=== PATIENT | male | born 1960 | race Caucasian/White ===

== ENCOUNTER 2016-10-16 01:36 | Emergency (ER) | payer BC, OTHER ==
[~2016-10-16] VITALS: Ht 175.3 cm; Wt 83.9 kg
[2016-10-16] MEDS ORDERED: fentaNYL PF VIAL 100 MCG/2 ML VIAL IV PRN (03:00)
[2016-10-16] MEDS ORDERED: HYDROmorphone 2 MG/ML VIAL IV/SQ PRN (03:00)
--- NOTE | 2016-10-16 03:00 | PHYS DOC ---
Past Medical History Past Medical History: Kidney Stone Past Surgical History: No Surgical History Additional Past Surgical Histo: CYsto with ureteral stent placement Alcohol Use: None Drug Use: None Adult General Chief Complaint Chief Complaint: FLANK PAIN HPI HPI Patient is a 56 year old male who presents with complaint of right flank pain. Started at 2300 PM with pain in the right flank. No recent travel. Nausea but no vomiting. He is followed by DR Ponce. No hematuria. No diarrhea or stool changes. No fever. No chest pain or SOA. Review of Systems Review of Systems Constitutional: Denies fever or chills Eyes: Denies change in visual acuity, redness, or eye pain HENT: Denies nasal congestion or sore throat Respiratory: Denies cough or shortness of breath Cardiovascular: No chest pain. GI: Denies abdominal pain, nausea, vomiting, bloody stools or diarrhea : Denies dysuria or hematuria Musculoskeletal: Denies back pain or joint pain Integument: Denies rash or skin lesions Neurologic: Denies headache, focal weakness or sensory changes Current Medications Current Medications Current Medications Medications (Trade) Dose Ordered Sig/Deanna Start Time Stop Time Status Last Admin Dose Admin Fentanyl Citrate (Fentanyl 2ml Vial) 50 mcg PRN Q15MIN PRN 10/16/16 03:00 10/16/16 05:31 DC Hydromorphone HCl (Dilaudid) 1 mg PRN Q15MIN PRN 10/16/16 03:00 10/16/16 05:31 DC 10/16/16 04:18 1 MG Ketorolac Tromethamine (Toradol) 30 mg 1X ONCE 10/16/16 05:15 10/16/16 05:16 DC 10/16/16 05:15 30 MG Ondansetron HCl (Zofran) 4 mg 1X ONCE 10/16/16 03:30 10/16/16 03:31 DC 10/16/16 04:17 4 MG Sodium Chloride 1,000 ml @ 1,000 mls/hr Q1H 10/16/16 03:30 10/16/16 04:29 DC 10/16/16 04:18 1,000 MLS/HR Tamsulosin HCl (Flomax) 0.4 mg 1X ONCE 10/16/16 05:15 10/16/16 05:16 DC 10/16/16 05:15 0.4 MG Allergies Allergies Allergies Coded Allergies Type Severity Reaction Last Updated Verified No Known Drug Allergies 10/16/16 No Physical Exam Physical Exam Constitutional: Well developed, well nourished, no acute distress, non-toxic appearance. HENT: Normocephalic, atraumatic, bilateral external ears normal, oropharynx moist, no oral exudates, nose normal. Eyes: PERRLA, EOMI, conjunctiva normal, no discharge. Neck: Normal range of motion, no tenderness, supple, no stridor. Cardiovascular:Heart rate regular rhythm, no murmur Lungs & Thorax: Bilateral breath sounds clear to auscultation Abdomen: Bowel sounds normal, soft, no tenderness, no masses, no pulsatile masses. No rebound or guarding. Skin: Warm, dry, no erythema, no rash. Back: No tenderness, no CVA tenderness. Extremities: No tenderness, no cyanosis, no clubbing, ROM intact, no edema. Neurologic: Alert and oriented X 3, normal motor function, normal sensory function, no focal deficits noted. Psychologic: Affect normal, judgement normal, mood normal. Current Patient Data Vital Signs Vital Signs Date Time Temp Pulse Resp B/P (MAP) Pulse Ox O2 Delivery O2 Flow Rate FiO2 10/16/16 05:00 68 131/84 (100) 95 Room Air 10/16/16 02:20 98.3 16 98.3 Lab Values Laboratory Tests Test 10/16/16 02:30 White Blood Count 7.5 x10^3/uL (4.0-11.0) Red Blood Count 5.14 x10^6/uL (4.30-5.70) Hemoglobin 15.0 g/dL (13.0-17.5) Hematocrit 44.8 % (39.0-53.0) Mean Corpuscular Volume 87 fL (79-100) Mean Corpuscular Hemoglobin 29 pg (25-35) Mean Corpuscular Hemoglobin Concent 33 g/dL (31-37) Red Cell Distribution Width 13.2 % (11.5-14.5) Platelet Count 232 x10^3/uL (140-400) Neutrophils (%) (Auto) 64 % (31-73) Lymphocytes (%) (Auto) 25 % (24-48) Monocytes (%) (Auto) 9 % (0-9) Eosinophils (%) (Auto) 2 % (0-3) Basophils (%) (Auto) 1 % (0-3) Neutrophils # (Auto) 4.8 x10^3uL (1.8-7.7) Lymphocytes # (Auto) 1.9 x10^3/uL (1.0-4.8) Monocytes # (Auto) 0.7 x10^3/uL (0.0-1.1) Eosinophils # (Auto) 0.1 x10^3/uL (0.0-0.7) Basophils # (Auto) 0.0 x10^3/uL (0.0-0.2) Urine Collection Type Unknown Urine Color Yellow Urine Clarity Clear Urine pH 5.5 Urine Specific [place] >=1.030 Urine Protein Negative mg/dL (NEG-TRACE) Urine Glucose (UA) Negative mg/dL (NEG) Urine Ketones (Stick) Negative mg/dL (NEG) Urine Blood Trace (NEG) Urine Nitrite Negative (NEG) Urine Bilirubin Negative (NEG) Urine Urobilinogen Dipstick 0.2 mg/dL (0.2 mg/dL) Urine Leukocyte Esterase Negative (NEG) Urine RBC 11-20 /HPF (0-2) Urine WBC Occ /HPF (0-4) Urine Squamous Epithelial Cells Few /LPF Urine Bacteria 0 /HPF (0-FEW) Urine Mucus Marked /LPF Sodium Level 140 mmol/L (136-145) Potassium Level 3.7 mmol/L (3.5-5.1) Chloride Level 105 mmol/L (98-107) Carbon Dioxide Level 27 mmol/L (21-32) Anion Gap 8 (6-14) Blood Urea Nitrogen 23 mg/dL (8-26) Creatinine 1.2 mg/dL (0.7-1.3) Estimated GFR (Cockcroft-Gault) 62.9 BUN/Creatinine Ratio 19 (6-20) Glucose Level 108 mg/dL (70-99) H Calcium Level 8.9 mg/dL (8.5-10.1) Total Bilirubin 1.5 mg/dL (0.2-1.0) H Aspartate Amino Transferase (AST) 16 U/L (15-37) Alanine Aminotransferase (ALT) 28 U/L (16-63) Alkaline Phosphatase 76 U/L (46-116) Total Protein 7.3 g/dL (6.4-8.2) Albumin 4.1 g/dL (3.4-5.0) Albumin/Globulin Ratio 1.3 (1.0-1.7) Lipase 70 U/L (73-393) L Laboratory Tests 10/16/16 02:30 Laboratory Tests 10/16/16 02:30 Radiology/Procedures Radiology/Procedures [facility] [address] [place] [address] IMAGING REPORT Signed PATIENT: VANESSA TALLEY ACCOUNT: [id number] : 1960 LOCATION: ER AGE: 56 SEX: M EXAM STATUS: REG ER ORD. PHYSICIAN: GREG KIRK MD REASON: rt flank pain w h/o stones PROCEDURE: CT ABDOMEN PELVIS WO CONTRAST CT abdomen and pelvis without contrast: Reason for examination: Right flank pain tonight. History of stones. Helical images were obtained through the abdomen and pelvis with no intravenous or oral contrast administered. Reconstruction was performed in sagittal and coronal planes. Exposure: One or more of the following individualized dose reduction techniques were utilized for this examination: 1. Automated exposure control 2. Adjustment of the mA and/or kV according to patient size 3. Use of iterative reconstruction technique. The lung bases are clear. The heart size is normal with no pericardial effusion evident. No abnormality seen at the liver, gallbladder, pancreas or adrenal glands. The spleen shows multiple splenic granuloma. The left kidney shows a nonobstructing calculus at the lower pole but no hydronephrosis or obstructive uropathy is seen at the left ureter. The right kidney shows a small nonobstructing calculus at the lower pole of the right kidney posteriorly. There is also however suggestion of mild dilatation of the right renal pelvis but definite calculus along the course of the ureter is not identified and this could reflect passage of a calculus. Recommend clinical correlation. No abnormality seen at the appendix. The intestinal tract shows no abnormally dilated loops of bowel or evidence of bowel obstruction. There is however a small umbilical hernia containing omental fat and small intestine is bulging into the hernia but is not incarcerated. No abnormality seen at the bladder. Prostate gland is homogeneous but enlarged at 5.4 cm. Seminal vesicles show no abnormalities. No acute bony abnormalities are seen but there are some degenerative changes in the lower thoracic spine. IMPRESSION: Nonobstructing calculi seen in the kidneys bilaterally. Mild prominence of the right renal pelvis but no calculus seen along the course of the right ureter or in the right renal pelvis. This could represent passage of a calculus. Recommend clinical correlation. Umbilical hernia containing omental fat and a loop of small bowel appears to be bulging into the hernia sac without incarceration. Enlarged prostate gland. Electronically signed by: Eliceo Delgado MD (10/16/2016 4:07 AM) [facility] DICTATED and SIGNED BY: ELICEO DELGADO MD DATE: 10/16/16 0357 CC: GREG KIRK MD; ALTA MEEKS NP ~ Course & Med Decision Making Course & Med Decision Making Pertinent Labs and Imaging studies reviewed. (See chart for details) 5 patient upon arrival. IV pain medication dose. Patient findings consistent with kidney stone. 0430 am: CT tube report back and noted. No stones seen but dilated ureter that would be consistent with a recently passed stone. Upon reevaluation patient is pain-free presently. Urinalysis is clear patient we discharged with Flomax, Percocet, Zofran. Follow up with his personal physician. Sameer Disclaimer Dragarturo Disclaimer This electronic medical record was generated, in whole or in part, using a voice recognition dictation system. Departure Departure Impression: Primary Impression: Acute right flank pain Additional Impression: Renal colic on right side Disposition: 01 HOME, SELF-CARE Condition: STABLE Patient Instructions: Diet for Kidney Stones Scripts Ondansetron (ZOFRAN ODT) 4 Mg Tab.rapdis 1 TAB SL Q8HRS, #10 TAB Prov: GREG KIRK MD 10/16/16 Tamsulosin Hcl (FLOMAX) 0.4 Mg Cap.er.24h 0.4 MG PO DAILY for 10 Days, #10 TAB Prov: GREG KIRK MD 10/16/16 Oxycodone/Apap 5-325 (PERCOCET 5-325 MG TABLET) 1 Each Tablet 1-2 TAB PO Q4-6HRS, #20 TAB Prov: GREG KIRK MD 10/16/16 Problem Qualifiers GREG KIRK MD Oct 16, 2016 03:00
[2016-10-16 03:20] LABS: BASO % 1 % (0-3); EOS % 2 % (0-3); HEMATOCRIT 44.8 % (39.0-53.0); LYMPH # 1.9 x10^3/uL (1.0-4.8); LYMPH % 25 % (24-48); MEAN CORPUSCULAR HEMOGLOBIN 29 pg (25-35); MEAN CORPUSCULAR HGB CONC 33 g/dL (31-37); MEAN CORPUSCULAR VOLUME 87 fL (79-100); MONO % 9 % (0-9); NEUT % 64 % (31-73); PLATELET COUNT 232 x10^3/uL (140-400); RED BLOOD COUNT 5.14 x10^6/uL (4.30-5.70); RED CELL DISTRIBUTION WIDTH 13.2 % (11.5-14.5); WHITE BLOOD COUNT 7.5 x10^3/uL (4.0-11.0)
[2016-10-16 03:28] LABS: BILIRUBIN,URINE NEGATIVE (NEG); GLUCOSE,URINE NEGATIVE (NEG); NITRITE,URINE NEGATIVE (NEG); PH,URINE 5.5; PROTEIN,URINE NEGATIVE (NEG-TRACE); UROBILINOGEN,URINE 0.2 mg/dL (0.2 mg/dL)
[2016-10-16] MEDS ORDERED: ONDANSETRON PF 4 MG/2 ML VIAL. IV ONE (03:30)
[2016-10-16] MEDS ORDERED: IV NORMAL SALINE 1000ML BAG 1,000 ML IV SCH (03:30)
[2016-10-16 03:51] LABS: CALCIUM 8.9 mg/dL (8.5-10.1); CREATININE 1.2 mg/dL (0.7-1.3); GFR 62.9; POTASSIUM 3.7 mmol/L (3.5-5.1)
[2016-10-16 03:58] LABS: ALBUMIN 4.1 g/dL (3.4-5.0); ALBUMIN/GLOBULIN RATIO 1.3 (1.0-1.7); TOTAL BILIRUBIN 1.5 mg/dL (0.2-1.0); TOTAL PROTEIN 7.3 g/dL (6.4-8.2)
--- NOTE | 2016-10-16 04:10 | RAD ---
CT abdomen and pelvis without contrast: Reason for examination: Right flank pain tonight. History of stones. Helical images were obtained through the abdomen and pelvis with no intravenous or oral contrast administered. Reconstruction was performed in sagittal and coronal planes. Exposure: One or more of the following individualized dose reduction techniques were utilized for this examination: 1. Automated exposure control 2. Adjustment of the mA and/or kV according to patient size 3. Use of iterative reconstruction technique. The lung bases are clear. The heart size is normal with no pericardial effusion evident. No abnormality seen at the liver, gallbladder, pancreas or adrenal glands. The spleen shows multiple splenic granuloma. The left kidney shows a nonobstructing calculus at the lower pole but no hydronephrosis or obstructive uropathy is seen at the left ureter. The right kidney shows a small nonobstructing calculus at the lower pole of the right kidney posteriorly. There is also however suggestion of mild dilatation of the right renal pelvis but definite calculus along the course of the ureter is not identified and this could reflect passage of a calculus. Recommend clinical correlation. No abnormality seen at the appendix. The intestinal tract shows no abnormally dilated loops of bowel or evidence of bowel obstruction. There is however a small umbilical hernia containing omental fat and small intestine is bulging into the hernia but is not incarcerated. No abnormality seen at the bladder. Prostate gland is homogeneous but enlarged at 5.4 cm. Seminal vesicles show no abnormalities. No acute bony abnormalities are seen but there are some degenerative changes in the lower thoracic spine. IMPRESSION: Nonobstructing calculi seen in the kidneys bilaterally. Mild prominence of the right renal pelvis but no calculus seen along the course of the right ureter or in the right renal pelvis. This could represent passage of a calculus. Recommend clinical correlation. Umbilical hernia containing omental fat and a loop of small bowel appears to be bulging into the hernia sac without incarceration. Enlarged prostate gland. Electronically signed by: Kadie Abdi MD (10/16/2016 4:07 AM) [facility]
[2016-10-16 04:44] LABS: BACTERIA,URINE 0 /HPF (0-FEW); SQUAMOUS EPITHELIAL CELL,UR FEW /LPF; WBC,URINE OCC /HPF (0-4)
[2016-10-16] MEDS ORDERED: OXYC-323 PO (04:49)
[2016-10-16] MEDS ORDERED: TAMS0.4C97 PO (04:49)
[2016-10-16] MEDS ORDERED: ONDA4TAB10 SL (04:49)
[2016-10-16 05:00] VITALS: BP 131/84
[2016-10-16] MEDS ORDERED: KETOROLAC TROMETHAMINE 30 MG/ML INJ. IV ONE (05:15)
[2016-10-16] MEDS ORDERED: TAMSULOSIN 0.4 MG CAP.ER.24H. PO ONE (05:15)
== END 2016-10-16 05:30 | disposition home or self-care (01) ==
LOC: ER 01:36
DX: N20.0 Calculus of kidney (principal); N40.0 Benign prostatic hyperplasia without lower urinary tract symptoms
CPT/HCPCS: 36415; 74176; 80053; 81001; 83690; 85027; 96361; 96374; 96375; 99285; J1170; J1885; J2405; J7030